=== PATIENT | male | born 1980 | race African-American/Black ===

== ENCOUNTER 2016-04-06 15:17 | Emergency (ER) | payer MEDICAID ==
[~2016-04-06] VITALS: Ht 190.5 cm; Wt 95.3 kg
[~2016-04-06 15:17] MED LIST: CATAFLAM50 MG PO; DAYPRO600 M1 PO; FLEXERIL10 MG PO; FLEXERIL5 MG PO; MOTRIN800 MG PO; NAPROXEN PO; NAPROXEN500 M1 PO; PENICILLIN250 MG; PREDNISONE20 MG PO; ROBAXIN750 MG PO; VICODIN 5/500 505 MG PO; VICODIN ES 7501 TAB PO; VISTARIL25 MG PO; VOLTAREN50 M1 PO; WELLBUTRIN100 MG PO; WYMOX500 MG PO; XANAX1 MG PO; XANAX2 M1 PO
[2016-04-06] MEDS ORDERED: ABILIFY2 MG PO (15:23)
[2016-04-06] MEDS ORDERED: NEURONTIN800 MG PO (15:23)
[2016-04-06] MEDS ORDERED: XANAX2 M1 PO (15:51)
== END 2016-04-06 15:57 | disposition home or self-care (01) ==
LOC: ED 15:17
DX: F41.9 Anxiety disorder, unspecified (principal); Z88.6 Allergy status to analgesic agent; Z79.899 Other long term (current) drug therapy; F17.200 Nicotine dependence, unspecified, uncomplicated

== ENCOUNTER 2016-07-01 06:45 | Emergency (ER) | payer MEDICAID ==
[~2016-07-01] VITALS: Ht 190.5 cm; Wt 97.5 kg
[~2016-07-01 06:45] MED LIST changes: +ABILIFY2 MG PO; +NEURONTIN800 MG PO
[2016-07-01] MEDS ORDERED: XANAX2 M1 PO ×2 (06:53→09:26)
== END 2016-07-01 09:45 | disposition home or self-care (01) ==
LOC: ED 06:45
DX: F41.9 Anxiety disorder, unspecified (principal); F17.200 Nicotine dependence, unspecified, uncomplicated; Z88.6 Allergy status to analgesic agent

== ENCOUNTER 2016-08-16 15:03 | Emergency (ER) | payer SELFPAY ==
[~2016-08-16] VITALS: Ht 193 cm; Wt 102.1 kg
[2016-08-16] MEDS ORDERED: NEURONTIN800 MG PO (15:26)
[2016-08-16] MEDS ORDERED: XANAX XR1 MG PO (15:26)
== END 2016-08-16 15:54 | disposition home or self-care (01) ==
LOC: ED 15:03
DX: F41.9 Anxiety disorder, unspecified (principal); F17.200 Nicotine dependence, unspecified, uncomplicated; Z90.49 Acquired absence of other specified parts of digestive tract; Z88.6 Allergy status to analgesic agent

== ENCOUNTER 2016-10-16 12:49 | Emergency (ER) | payer SELFPAY ==
[~2016-10-16] VITALS: Wt 95.3 kg
[~2016-10-16 12:49] MED LIST changes: +XANAX XR1 MG PO
[2016-10-16] MEDS ORDERED: AMOXICILLIN500 M2 PO (13:08)
[2016-10-16] MEDS ORDERED: ZYRTEC10 MG PO (13:08)
== END 2016-10-16 14:14 | disposition home or self-care (01) ==
LOC: ED 12:49
DX: J01.90 Acute sinusitis, unspecified (principal); F17.200 Nicotine dependence, unspecified, uncomplicated; Z90.49 Acquired absence of other specified parts of digestive tract; Z88.6 Allergy status to analgesic agent

== ENCOUNTER 2017-01-09 14:57 | Emergency (ER) | payer SELFPAY ==
[~2017-01-09] VITALS: Wt 95.3 kg
[~2017-01-09 14:57] MED LIST changes: +AMOXICILLIN500 M2 PO; +ZYRTEC10 MG PO
[2017-01-09] MEDS ORDERED: ALPRAZOLAM XR1 MG PO (15:21)
[2017-01-09] MEDS ORDERED: GABAPENTIN800 MG PO (15:21)
== END 2017-01-09 16:36 | disposition home or self-care (01) ==
LOC: ED 14:57
DX: F41.9 Anxiety disorder, unspecified (principal); R03.0 Elevated blood-pressure reading, without diagnosis of hypertension; F17.200 Nicotine dependence, unspecified, uncomplicated; Z88.6 Allergy status to analgesic agent; Z90.49 Acquired absence of other specified parts of digestive tract

== ENCOUNTER 2017-02-16 20:19 | Emergency (ER) | payer SELFPAY ==
[~2017-02-16] VITALS: Ht 185.4 cm; Wt 77.1 kg
[~2017-02-16 20:19] MED LIST changes: +ALPRAZOLAM XR1 MG PO; +GABAPENTIN800 MG PO
== END 2017-02-16 22:07 | disposition home or self-care (01) ==
LOC: ED 20:19
DX: T40.1X1A Poisoning by heroin, accidental (unintentional), initial encounter (principal); F17.200 Nicotine dependence, unspecified, uncomplicated; Z90.49 Acquired absence of other specified parts of digestive tract; Z88.6 Allergy status to analgesic agent; Z79.899 Other long term (current) drug therapy; Y92.9 Unspecified place or not applicable

== ENCOUNTER 2017-05-24 20:16 | Emergency (ER) | payer SELFPAY ==
[~2017-05-24] VITALS: Ht 190.5 cm; Wt 99.8 kg
[2017-05-24 21:06] LABS: BASO % 0.3 % (0.0-1.0); EOS # 0.1 10*3/uL (0.0-0.4); EOS % 1.4 % (1.0-4.0); HEMATOCRIT 33.8 % (42.0-52.0); HEMOGLOBIN 11.5 g/dl (14.0-18.0); LYMPH # 2.9 10*3/uL (1.3-4.4); LYMPH % 41.1 % (27.0-41.0); MEAN CELL VOLUME 88.5 fl (80.0-94.0); MEAN CORPUSCULAR HGB 30.1 pg (27.0-31.0); MEAN PLATELET VOLUME 10.9 fl (9.6-12.3); MONO # 0.6 10*3/uL (0.1-1.0); NEUT # 3.5 10*3/uL (2.3-7.9); NEUT % 49.1 % (47.0-73.0); PLATELET COUNT AUTOMATED 196 10*3/uL (130-400); RED BLOOD COUNT 3.82 10*6/uL (4.50-5.90); RED CELL DISTRI WIDTH 13.6 % (0-14.5)
[2017-05-24 21:19] LABS: BUN 12 mg/dl (7-24); CHLORIDE 103 mmol/L (98-107); CREATININE 1.11 mg/dL (0.70-1.30); POTASSIUM 3.2 mmol/L (3.5-5.1); SODIUM 140 mmol/L (136-145)
[2017-05-24 21:20] LABS: ACETAMINOPHEN (TYLENOL) < 2.0 ug/ml (10-30); ETHYL ALCOHOL < 3.0 mg/dl (<3)
[2017-05-24] MEDS ORDERED: XANAX XR1 MG PO ×3 (22:13→22:18)
[2017-05-24] MEDS ORDERED: NEURONTIN800 MG PO ×2 (22:13→22:16)
== END 2017-05-24 22:18 | disposition home or self-care (01) ==
LOC: ED 20:16
PROVIDERS: Emergency Medicine Emergency Medical Services
DX: F43.11 Post-traumatic stress disorder, acute (principal); F17.200 Nicotine dependence, unspecified, uncomplicated; F41.9 Anxiety disorder, unspecified; Z79.899 Other long term (current) drug therapy; Z90.49 Acquired absence of other specified parts of digestive tract; Z88.6 Allergy status to analgesic agent

== ENCOUNTER 2017-08-08 16:25 | Emergency (ER) | payer OTHER ==
[~2017-08-08] VITALS: Ht 190.5 cm; Wt 90.7 kg
== END 2017-08-08 18:09 | disposition home or self-care (01) ==
LOC: ED 16:25
DX: S06.0X1A Concussion with loss of consciousness of 30 minutes or less, initial encounter (principal); G89.29 Other chronic pain; Z90.49 Acquired absence of other specified parts of digestive tract; Z88.6 Allergy status to analgesic agent; Y04.0XXA Assault by unarmed brawl or fight, initial encounter; Y93.89 Activity, other specified; Y92.89 Other specified places as the place of occurrence of the external cause; Y99.9 Unspecified external cause status

== ENCOUNTER 2017-10-22 16:41 | Inpatient (IN) | payer OTHER ==
[~2017-10-22] VITALS: Ht 190.5 cm; Wt 85.9 kg
[2017-10-22 17:00] VITALS: BP 113/71
[2017-10-22] MEDS ORDERED: NEURONTIN800 MG PO (17:19)
[2017-10-22 20:00] VITALS: BP 128/78
[2017-10-23] VITALS: BP 123/69
[2017-10-23 08:00] VITALS: BP 111/68
== END 2017-10-23 08:54 | disposition left against medical advice (07) | DRG 894 ==
LOC: 4E 16:41
DX: F11.23 Opioid dependence with withdrawal (principal); F14.10 Cocaine abuse, uncomplicated; F41.9 Anxiety disorder, unspecified; G89.29 Other chronic pain; F43.10 Post-traumatic stress disorder, unspecified; F17.210 Nicotine dependence, cigarettes, uncomplicated; Z53.21 Procedure and treatment not carried out due to patient leaving prior to being seen by health care provider; Z90.49 Acquired absence of other specified parts of digestive tract; Z71.6 Tobacco abuse counseling; Z88.9 Allergy status to unspecified drugs, medicaments and biological substances

== ENCOUNTER 2018-04-21 13:16 | Emergency (ER) | payer OTHER ==
[~2018-04-21] VITALS: Ht 190.5 cm; Wt 90.7 kg
[2018-04-21] MEDS ORDERED: XANAX1 MG PO (14:33)
== END 2018-04-21 14:42 | disposition home or self-care (01) ==
LOC: ED 13:16
DX: F41.9 Anxiety disorder, unspecified (principal); Z76.0 Encounter for issue of repeat prescription; F17.200 Nicotine dependence, unspecified, uncomplicated; Z88.6 Allergy status to analgesic agent; Z79.899 Other long term (current) drug therapy; Z90.49 Acquired absence of other specified parts of digestive tract

== ENCOUNTER 2018-05-15 11:06 | Emergency (ER) | payer OTHER ==
[~2018-05-15] VITALS: Ht 193 cm; Wt 90.7 kg
[2018-05-15] MEDS ORDERED: XANAX1 MG PO (12:00)
[2018-08-12] MEDS ORDERED: METHOCARBAMOL750 M1 PO (11:36)
[2018-08-12] MEDS ORDERED: NEURONTIN800 MG PO (11:36)
[2018-08-12] MEDS ORDERED: ZOFRAN 4 MG ED2 TAB PO (11:36)
[2018-08-12] MEDS ORDERED: DICYCLOMINE HCL20 MG PO (11:36)
== END 2018-05-15 12:04 | disposition home or self-care (01) ==
LOC: ED 11:06
DX: F41.9 Anxiety disorder, unspecified (principal); F41.0 Panic disorder [episodic paroxysmal anxiety]; F43.10 Post-traumatic stress disorder, unspecified; F17.200 Nicotine dependence, unspecified, uncomplicated; Z88.6 Allergy status to analgesic agent

== ENCOUNTER 2018-05-30 10:48 | Emergency (ER) | payer OTHER ==
[~2018-05-30] VITALS: Ht 190.5 cm; Wt 95.3 kg
--- NOTE | ~2018-05-30 | EKG ---
[place], [place] ELECTROCARDIOGRAM REPORT NAME: ANETA JAMIL UNIT #: [id number] ROOM: DOCTOR: DANDRE DRAFT REPORT BIRTHDATE: [birth year] [facility] Test Date: 2018-05-30 Test Time: 11:07:56 Pat Name: ANETA JAMIL Department: Room: Gender: School Counselor: : 1980 Requested By: JOSIAH LOCKETT Order Number: [id number] Reading MD: Crys Shah MD Measurements Intervals [place] Rate: 83 P: 45 W[place]: 170 QRS: 48 QRSD: 83 T: 33 QT: 365 QTc: 429 Interpretive Statements Sinus rhythm Consider left ventricular hypertrophy ST elev, probable normal early repol pattern Baseline wander in lead(s) V2 No previous ECG available for comparison Electronically Signed On 06-02-2018 15:23:12 PST by Crys Shah MD CM:EKGRPT:ELECTROCARDIOGRAM REPORT [id number] JOSIAH DAWKINS DRAFT REPORT JOSIAH LOCKETT DO
[2018-05-30 11:10] LABS: BASO % 0.4 % (0.0-1.0); EOS % 0.8 % (1.0-4.0); HEMOGLOBIN 12.7 g/dl (14.0-18.0); LYMPH # 1.9 10*3/uL (1.3-4.4); LYMPH % 37.4 % (27.0-41.0); MEAN CELL VOLUME 92.2 fl (80.0-94.0); MEAN CORPUSCULAR HGB 30.8 pg (27.0-31.0); MEAN CORPUSCULAR HGB CONC 33.4 g/dl (33.0-37.0); MEAN PLATELET VOLUME 10.6 fl (9.6-12.3); MONO # 0.7 10*3/uL (0.1-1.0); MONO % 12.8 % (3.0-9.0); NEUT # 2.5 10*3/uL (2.3-7.9); NEUT % 48.6 % (47.0-73.0); PLATELET COUNT AUTOMATED 219 10*3/uL (130-400); RED BLOOD COUNT 4.12 10*6/uL (4.50-5.90); RED CELL DISTRI WIDTH 13.9 % (0-14.5); WHITE BLOOD COUNT 5.2 10*3/uL (4.8-10.8)
[2018-05-30 11:21] LABS: ACT PARTIAL THROMBO TIME 27.9 SECONDS (20.8-31.5)
[2018-05-30 11:47] LABS: ALBUMIN 3.7 gm/dl (3.1-4.5); ALKALINE PHOSPHATASE 72 U/L (45-117); BUN 12 mg/dl (7-24); CHLORIDE 106 mmol/L (98-107); CREATININE 0.93 mg/dL (0.70-1.30); ETHYL ALCOHOL < 3.0 mg/dl (<3); LIPASE 49 U/L (73-393); POTASSIUM 3.3 mmol/L (3.5-5.1); SGOT/AST 53 IU/L (3-35); SGPT/ALT 107 U/L (12-78); SODIUM 137 mmol/L (136-145); TOTAL PROTEIN 8.5 gm/dL (6.4-8.2); TROPONIN I < 0.015 ng/ml (<0.045)
[2018-05-30 13:26] LABS: ACETAMINOPHEN (TYLENOL) < 5.0 ug/ml (10-30)
[2018-08-12] MEDS ORDERED: NEURONTIN800 MG PO (11:36)
[2018-08-12] MEDS ORDERED: METHOCARBAMOL750 M1 PO (11:36)
[2018-08-12] MEDS ORDERED: DICYCLOMINE HCL20 MG PO (11:36)
[2018-08-12] MEDS ORDERED: ZOFRAN 4 MG ED2 TAB PO (11:36)
== END 2018-05-30 15:19 | disposition left against medical advice (07) ==
LOC: ED 10:48
PROVIDERS: Emergency Medicine
DX: F19.10 Other psychoactive substance abuse, uncomplicated (principal); F14.10 Cocaine abuse, uncomplicated; F11.10 Opioid abuse, uncomplicated; F17.200 Nicotine dependence, unspecified, uncomplicated; G89.29 Other chronic pain; Z88.6 Allergy status to analgesic agent; Z79.899 Other long term (current) drug therapy

== ENCOUNTER 2018-09-04 18:45 | Emergency (ER) | payer OTHER ==
[~2018-09-04] VITALS: Ht 190.5 cm; Wt 83.9 kg
[~2018-09-04 18:45] MED LIST changes: +DICYCLOMINE HCL20 MG PO; +METHOCARBAMOL750 M1 PO; +ZOFRAN 4 MG ED2 TAB PO
== END 2018-09-04 23:46 | disposition left against medical advice (07) ==
LOC: ED 18:45
DX: J34.89 Other specified disorders of nose and nasal sinuses (principal); R09.89 Other specified symptoms and signs involving the circulatory and respiratory systems; R51 Headache; R60.0 Localized edema; F17.200 Nicotine dependence, unspecified, uncomplicated; Z88.6 Allergy status to analgesic agent; Z79.899 Other long term (current) drug therapy; Z90.49 Acquired absence of other specified parts of digestive tract

== ENCOUNTER 2018-09-18 13:35 | Emergency (ER) | payer OTHER ==
[~2018-09-18] VITALS: Ht 190.5 cm; Wt 86.2 kg
[2018-09-18 13:58] LABS: BILIRUBIN NEGATIVE (NEGATIVE); BLOOD 3+ (NEGATIVE); CLARITY CLOUDY (CLEAR); COLOR YELLOW (YELLOW); GLUCOSE NEGATIVE (NEGATIVE); KETONE NEGATIVE (NEGATIVE); LEUKO ESTERASE 3+ (NEGATIVE); NITRITE POSITIVE (NEGATIVE); PH 6.5 (5.0-9.0)
[2018-09-18 14:10] LABS: BACTERIA 2+; RBC TNTC rbc/hpf (0-2); WBC TNTC wbc/hpf (0-5)
[2018-09-22 03:04] LABS: GONOCOCCUS BY NAA Negative (Negative)
== END 2018-09-18 15:50 | disposition home or self-care (01) ==
LOC: ED 13:35
PROVIDERS: Nurse Practitioner Family
DX: N39.0 Urinary tract infection, site not specified (principal); Z20.2 Contact with and (suspected) exposure to infections with a predominantly sexual mode of transmission; F17.200 Nicotine dependence, unspecified, uncomplicated; Z88.6 Allergy status to analgesic agent; Z79.899 Other long term (current) drug therapy; Z90.49 Acquired absence of other specified parts of digestive tract

== ENCOUNTER 2019-02-16 05:16 | Inpatient (IN) | payer SELFPAY ==
[2019-02-16] VITALS (7 sets, daily range): BP systolic 120–142; BP diastolic 60–91
[~2019-02-16] VITALS: Ht 190.5 cm; Wt 91.6 kg
--- NOTE | ~2019-02-16 | EKG ---
[place], [place] ELECTROCARDIOGRAM REPORT NAME: ANETA JAMIL UNIT #: [id number] ROOM: [facility] DOCTOR: DANDRE DRAFT REPORT BIRTHDATE: [birth year] [facility] Test Date: 2019-02-16 Test Time: 05:49:43 Pat Name: ANETA JAMIL Department: Room: [facility] Gender: M Financial Officer: : 1980 Requested By: SAMEER COSTA Order Number: [id number] Reading MD: Crys Shah MD Measurements Intervals [place] Rate: 87 P: 42 [place]: 172 QRS: 53 QRSD: 78 T: 12 QT: 363 QTc: 437 Interpretive Statements Sinus rhythm ST elev, probable normal early repol pattern Baseline wander in lead(s) I,II,aVR,V1,V6 Compared to ECG 08/08/2018 20:34:46 ST (T wave) deviation now present Electronically Signed On 02-17-2019 8:54:29 PST by Crys Shah MD CM:EKGRPT:ELECTROCARDIOGRAM REPORT [id number] SAMEER DAWKINS DRAFT REPORT SAMEER COSTA DO
--- NOTE | 2019-02-16 05:45 | NUR ---
TOTAL OF NARCAN 4 MG IV GIVEN WITH NO CHANGE IN PT LOC. HE IS LETHARGIC BUT DOES AROUSE OCCASSIONALLY AND WILL BE ALERT/ORIENTED X3. HE GETS AGITATED EASILY WHEN AWAKENED. STILL NO URINE PROVIDED AT THIS TIME. URINAL IN PT HAND.REPORT TO ABIDA PEREZ.--JODIE MONZON RN
[2019-02-16 05:58] LABS: BASO % 0.4 % (0.0-1.0); EOS # 0.1 10*3/uL (0.0-0.4); EOS % 1.4 % (1.0-4.0); HEMATOCRIT 37.1 % (42.0-52.0); HEMOGLOBIN 12.4 g/dl (14.0-18.0); LYMPH # 2.3 10*3/uL (1.3-4.4); MEAN CELL VOLUME 91.6 fl (80.0-94.0); MEAN CORPUSCULAR HGB 30.6 pg (27.0-31.0); MEAN CORPUSCULAR HGB CONC 33.4 g/dl (33.0-37.0); MEAN PLATELET VOLUME 11.5 fl (9.6-12.3); MONO # 0.5 10*3/uL (0.1-1.0); MONO % 9.1 % (3.0-9.0); NEUT # 2.3 10*3/uL (2.3-7.9); NEUT % 43.9 % (47.0-73.0); PLATELET COUNT AUTOMATED 197 10*3/uL (130-400); RED BLOOD COUNT 4.05 10*6/uL (4.50-5.90); RED CELL DISTRI WIDTH 13.9 % (0-14.5); WHITE BLOOD COUNT 5.2 10*3/uL (4.8-10.8)
--- NOTE | 2019-02-16 06:00 | NUR ---
ACCOMPANIED PT TO CT SCAN--JODIE MONZON RN
[2019-02-16 06:05] LABS: ALBUMIN 3.9 gm/dl (3.1-4.5); ALKALINE PHOSPHATASE 54 U/L (45-117); BUN 12 mg/dl (7-24); CHLORIDE 104 mmol/L (98-107); CREATININE 1.02 mg/dL (0.70-1.30); POTASSIUM 3.7 mmol/L (3.5-5.1); SGOT/AST 50 IU/L (3-35); SGPT/ALT 85 U/L (12-78); SODIUM 139 mmol/L (136-145); TOTAL PROTEIN 7.7 gm/dL (6.4-8.2)
[2019-02-16 06:09] LABS: ETHYL ALCOHOL < 3.0 mg/dl (<3)
--- NOTE | 2019-02-16 06:20 | NUR ---
ATTEMPTED 3X TO GET PT TO USE URINAL.HE GETS VERY AGITATED WHEN ASKED.WILL WAIT TO SEE IF IV FLUIDS HELP PROMOTE URINATION.DR COSTA AWARE.---JODIE MONZON RN
--- NOTE | 2019-02-16 07:10 | NUR ---
NURSE REPORT ACCEPTED. PT RESTING WITH EYES CLOSED.
--- NOTE | 2019-02-16 07:11 | NUR ---
DR COSTA'S DIRECTION REGARDING URINE SPECIMENS IS "WHEN HE URINATES, SEND THE SPECIMEN". SALINE INFUSING. PT HAS URINAL.
--- NOTE | 2019-02-16 07:39 | NUR ---
PT REFUSES MEAL TRAY. UNWILLING TO PROVIDE URINE SPECIMEN YET. VITALS STABLE AND WITHIN NORMAL LIMITS.
--- NOTE | 2019-02-16 09:21 | NUR ---
PT IS EASILY AROUSED AND DOES ANSWER MANY QUESTIONS APPROPRIATELY BUT IS LETHARGIC AND NOT FULLY ORIENTED YET. PT CONTINUES TO DENY DESIRE FOR MEAL TRAY OR THE NEED TO URINATE AND FALLS QUICKLY BACK ASLEEP. VITALS REMAIN STABLE..
--- NOTE | 2019-02-16 10:50 | NUR ---
PT AWAKENED, APPEARS ORIENTED BUT REMAINS VERY SLEEPY. HE CLAIMS HE HAD A CELLPHONE WHICH IS NOT ON HIS PERSON OR IN HIS ROOM AND THERE IS NO DOCUMENTATION FROM N[facility]-SHIFT TO ITS LOCATION. HE DOES QUICKLY FALL BACK ASLEEP. HE REFUSES TO BE ADMITTED TO THE HOSPITAL.
[2019-02-16 11:03] LABS: BILIRUBIN NEGATIVE (NEGATIVE); BLOOD NEGATIVE (NEGATIVE); CLARITY CLEAR (CLEAR); COLOR YELLOW (YELLOW); GLUCOSE NEGATIVE (NEGATIVE); KETONE NEGATIVE (NEGATIVE); LEUKO ESTERASE NEGATIVE (NEGATIVE); NITRITE NEGATIVE (NEGATIVE); PH 5.5 (5.0-9.0); UROBILINOGEN 0.2 E.U./dl (0.2-1.0)
[2019-02-16 11:12] LABS: URINE AMPHETAMINES < 1000 (1000ng/ml); URINE BARBITURATES < 200 (200ng/ml); URINE BENZODIAZEPINES < 200 (200ng/ml); URINE CANNABINOIDS (THC) < 50 (50ng/ml); URINE COCAINE > 300 (300ng/ml); URINE METHADONE < 300 (300ng/ml); URINE OPIATES < 300 (300ng/ml)
[2019-02-16 11:13] LABS: RBC 0-2 rbc/hpf (0-2); URINE PHENCYCLIDINE < 25 (25ng/ml); WBC 0-2 wbc/hpf (0-5)
--- NOTE | 2019-02-16 11:27 | NUR ---
PT NOW AWAKENED AGAIN TO INQUIRE IF HE WILL AGREE TO STAY. HE WILL. THEN FELL IMMEDIATELY BACK TO SLEEP.
--- NOTE | 2019-02-16 11:42 | NUR ---
A 38, admitted to ICCU, under the services of MIO Dejesus DO with a diagnosis of ALTERED MENTAL STATUS. Chief complaint is LETHARGY, UNRESPONSIVENESS. Patient arrived via OTHER from ER. Monitor applied. Initial assessment completed. Vital signs taken and recorded. MIO DEJESUS DO notified of admission to the unit. Orders received. See assessment for past medical history, medications and allergies. Patient and/or family oriented to unit. [facility] visitation policy reviewed. Clothing/patient valuable form completed. ALEJANDRINA AGUERO
--- NOTE | 2019-02-16 11:52 | NUR ---
SPOKE WITH PHARMACIST FROM [email or web address]. VERIFIED THAT PATIENT HASN'T HAD ANY PRESCRIPTIONS FILLED SINCE SEPTEMBER 2018.
--- NOTE | 2019-02-16 17:14 | NUR ---
AWAKE, ASKING FOR FOOD
--- NOTE | 2019-02-16 20:29 | NUR ---
PT. RESTING IN BED. IVF CONTINUE ORDERED VIA RAN, SITE ASYMPT LUNGS DIMINISHED BUT CLEAR BILAT, PULSE OX 98% ON RA. ABDOMEN SOFT, NONDSITENDED AND NORMO. NO PERIPHERAL EDEMA NOTED. RESP. EASY AND REG ,NO DISTRESS. MICHELLE SMART RN
[2019-02-17] VITALS: BP 111/70
[2019-02-17 04:00] VITALS: BP 118/68
--- NOTE | 2019-02-17 05:23 | NUR ---
PT. REFUSED AM BLOODWORK. MICHLELE SMART RN
--- NOTE | 2019-02-17 07:28 | NUR ---
Shift chart check completed.24 HR chart check completed.
--- NOTE | 2019-02-17 07:56 | NUR ---
PT STOOD TO VOID, WAS STEADY, THEN LYING BACK IN BED, APPEARED COMFORTABLE. ON ASSESSMENT HE AROUSES EASILY. ABLE TO SAY HE'S IN HOSPITAL, THEN [place], BUT HE'S UNSURE WHY HE'S HERE AND ASKED WHAT DAY IT WAS. I INFORMED HIM OF EVENTS OF YESTERDAY. HE DENIES USING ANY HEROIN ("NOT ANYMORE"). INFORMED HIM HIS URINE WAS POSITIVE FOR COCAINE ONLY AND ETOH <3.0. HE DIDN'T VOICE TO ME ANYTHING ABOUT WHAT HE TOOK. I TOLD HIM THAT EARLIER TODAY HE HAD REFUSED LABS AND AT THIS TIME HE AGAIN SAYS "I DON'T WANT MORE LABS". BREAKFAST ORDERED. HE'S COOPERATIVE. IV FLUIDS CONTINUE.
[2019-02-17 08:00] VITALS: BP 120/70
--- NOTE | 2019-02-17 08:25 | NUR ---
DR KRUSE INFORMED THAT PT AGAIN REFUSING LABS. CANCELLING THEM "REFUSED".
--- NOTE | 2019-02-17 09:14 | NUR ---
DR VANN HAS VISITED.DISCHARGE ORDER RECEIVED. HE PHONED SOMEONE. IV AND MONITOR REMOVED. DISCHARGE INSTRUCTIONS REVIEWED WITH PT. HE LEFT, AMBULATORY WITH ALL OF HIS POSSESSIONS, IN STABLE CONDITION.
== END 2019-02-17 09:14 | disposition home or self-care (01) | DRG 917 ==
LOC: ED 05:16 → ICCU 10:36 → EDHOLD 10:36 → ICCU 10:39
PROVIDERS: Emergency Medicine; ADMIT Family Medicine
DX: T40.5X1A Poisoning by cocaine, accidental (unintentional), initial encounter (principal); G93.41 Metabolic encephalopathy; D64.9 Anemia, unspecified; F14.10 Cocaine abuse, uncomplicated; R74.0 Nonspecific elevation of levels of transaminase and lactic acid dehydrogenase [LDH]; R73.9 Hyperglycemia, unspecified; F41.9 Anxiety disorder, unspecified; F17.210 Nicotine dependence, cigarettes, uncomplicated; F43.10 Post-traumatic stress disorder, unspecified; G89.29 Other chronic pain; Z88.5 Allergy status to narcotic agent; Z71.6 Tobacco abuse counseling; Z88.8 Allergy status to other drugs, medicaments and biological substances; Z90.49 Acquired absence of other specified parts of digestive tract; Y92.89 Other specified places as the place of occurrence of the external cause

== ENCOUNTER 2019-04-16 15:19 | Emergency (ER) | payer OTHER ==
[~2019-04-16] VITALS: Ht 190.5 cm; Wt 94.3 kg
[2019-04-16 16:37] LABS: BILIRUBIN NEGATIVE (NEGATIVE); BLOOD NEGATIVE (NEGATIVE); CLARITY CLEAR (CLEAR); COLOR YELLOW (YELLOW); GLUCOSE NEGATIVE (NEGATIVE); KETONE NEGATIVE (NEGATIVE); LEUKO ESTERASE NEGATIVE (NEGATIVE); NITRITE NEGATIVE (NEGATIVE); PH 6.5 (5.0-9.0); SPECIFIC GRAVITY 1.025 (1.005-1.030); UROBILINOGEN 0.2 E.U./dl (0.2-1.0)
[2019-04-16 17:01] LABS: WBC 0-2 wbc/hpf (0-5)
[2019-04-17 18:07] LABS: GONOCOCCUS BY NAA Negative (Negative)
== END 2019-04-16 16:52 | disposition home or self-care (01) ==
LOC: ED 15:19
PROVIDERS: Nurse Practitioner Family
DX: R30.0 Dysuria (principal); N48.89 Other specified disorders of penis; Z20.2 Contact with and (suspected) exposure to infections with a predominantly sexual mode of transmission; Z88.6 Allergy status to analgesic agent; Z88.8 Allergy status to other drugs, medicaments and biological substances; Z90.49 Acquired absence of other specified parts of digestive tract

== ENCOUNTER 2019-11-01 21:58 | Emergency (ER) | payer OTHER ==
[2019-11-01] MEDS ORDERED: BUSPIRONE HCL10 MG PO (22:01)
[2019-11-01] MEDS ORDERED: SUBOXONE 8 MG-1 EACH SL (22:01)
== END 2019-11-01 23:12 | disposition home or self-care (01) ==
LOC: ED 21:58
DX: T50.905A Adverse effect of unspecified drugs, medicaments and biological substances, initial encounter (principal); F43.10 Post-traumatic stress disorder, unspecified; F41.9 Anxiety disorder, unspecified; X58.XXXA Exposure to other specified factors, initial encounter; Y93.89 Activity, other specified; Y92.89 Other specified places as the place of occurrence of the external cause; Y99.8 Other external cause status

== ENCOUNTER 2019-11-26 21:53 | Emergency (ER) | payer OTHER ==
[~2019-11-26] VITALS: Ht 190.5 cm; Wt 108.1 kg
[~2019-11-26 21:53] MED LIST changes: +BUSPIRONE HCL10 MG PO; +SUBOXONE 8 MG-1 EACH SL
[2019-11-26 23:00] LABS: BASO % 0.3 % (0.0-1.0); EOS % 0.3 % (1.0-4.0); HEMATOCRIT 32.8 % (42.0-52.0); LYMPH # 1.8 10*3/uL (1.3-4.4); LYMPH % 25.2 % (27.0-41.0); MEAN CELL VOLUME 88.4 fl (80.0-94.0); MEAN CORPUSCULAR HGB 28.8 pg (27.0-31.0); MEAN CORPUSCULAR HGB CONC 32.6 g/dl (33.0-37.0); MEAN PLATELET VOLUME 11.2 fl (9.6-12.3); MONO # 0.7 10*3/uL (0.1-1.0); MONO % 9.9 % (3.0-9.0); NEUT # 4.6 10*3/uL (2.3-7.9); PLATELET COUNT AUTOMATED 286 10*3/uL (130-400); RED BLOOD COUNT 3.71 10*6/uL (4.50-5.90); RED CELL DISTRI WIDTH 13.6 % (0-14.5); WHITE BLOOD COUNT 7.2 10*3/uL (4.8-10.8)
[2019-11-26 23:18] LABS: ALBUMIN 3.7 gm/dl (3.1-4.5); BUN 13 mg/dl (7-24); CHLORIDE 105 mmol/L (98-107); CREATININE 1.33 mg/dL (0.70-1.30); POTASSIUM 3.4 mmol/L (3.5-5.1); SGOT/AST 28 IU/L (3-35); SGPT/ALT 52 U/L (12-78); SODIUM 139 mmol/L (136-145)
[2019-11-26 23:37] LABS: ALKALINE PHOSPHATASE 87 U/L (45-117); TROPONIN I < 0.015 ng/ml (<0.045)
[2019-11-27 01:31] LABS: URINE AMPHETAMINES < 1000 (1000ng/ml); URINE BARBITURATES < 200 (200ng/ml); URINE BENZODIAZEPINES < 200 (200ng/ml); URINE CANNABINOIDS (THC) < 50 (50ng/ml); URINE COCAINE < 300 (300ng/ml); URINE METHADONE < 300 (300ng/ml); URINE OPIATES > 300 (300ng/ml)
[2019-11-27 01:32] LABS: URINE PHENCYCLIDINE < 25 (25ng/ml)
[2019-11-27 01:34] LABS: BILIRUBIN NEGATIVE; BLOOD NEGATIVE (NEGATIVE); CLARITY CLEAR (CLEAR); COLOR YELLOW (YELLOW); GLUCOSE NEGATIVE; KETONE TRACE; LEUKO ESTERASE TRACE (NEGATIVE); NITRITE NEGATIVE (NEGATIVE); PH 5.5 (4.5-8.0)
[2019-11-27 01:37] LABS: RBC 16-20 rbc/hpf (0-2)
== END 2019-11-27 01:52 | disposition home or self-care (01) ==
LOC: ED 21:53
PROVIDERS: Student in an Organized Health Care Education/Training Program
DX: J40 Bronchitis, not specified as acute or chronic (principal); F17.210 Nicotine dependence, cigarettes, uncomplicated; Z88.6 Allergy status to analgesic agent

== ENCOUNTER 2022-06-14 03:17 | Emergency (ER) | payer OTHER ==
[~2022-06-14] VITALS: Ht 190.5 cm; Wt 116.2 kg
[2022-06-14 03:47] LABS: BASO % 0.4 % (0.0-1.0); EOS # 0.1 10*3/uL (0.0-0.4); LYMPH # 2.4 10*3/uL (1.3-4.4); LYMPH % 42.2 % (27.0-41.0); MEAN CELL VOLUME 87.1 fl (80.0-94.0); MEAN PLATELET VOLUME 10.5 fl (9.6-12.3); MONO # 0.7 10*3/uL (0.1-1.0); MONO % 11.7 % (3.0-9.0); NEUT # 2.4 10*3/uL (2.3-7.9); NEUT % 43.2 % (47.0-73.0); PLATELET COUNT AUTOMATED 257 10*3/uL (130-400); RED BLOOD COUNT 3.56 10*6/uL (4.50-5.90); RED CELL DISTRI WIDTH 14.9 % (0-14.5); WHITE BLOOD COUNT 5.6 10*3/uL (4.8-10.8)
[2022-06-14 04:00] LABS: BUN 7 mg/dl (9-23); CHLORIDE 106 mmol/L (98-107); POTASSIUM 3.7 mmol/L (3.4-5.1)
== END 2022-06-14 05:08 | disposition short-term general hospital (02) ==
LOC: ED 03:17
PROVIDERS: Internal Medicine
DX: S62.393B Other fracture of third metacarpal bone, left hand, initial encounter for open fracture (principal); S62.395B Other fracture of fourth metacarpal bone, left hand, initial encounter for open fracture; D64.9 Anemia, unspecified; Z88.6 Allergy status to analgesic agent; Z88.8 Allergy status to other drugs, medicaments and biological substances; Z90.49 Acquired absence of other specified parts of digestive tract; F17.200 Nicotine dependence, unspecified, uncomplicated; F14.90 Cocaine use, unspecified, uncomplicated; F12.90 Cannabis use, unspecified, uncomplicated; F41.9 Anxiety disorder, unspecified; W26.8XXA Contact with other sharp object(s), not elsewhere classified, initial encounter; Y93.89 Activity, other specified; Y92.009 Unspecified place in unspecified non-institutional (private) residence as the place of occurrence of the external cause; Y99.8 Other external cause status

== ENCOUNTER 2022-06-21 16:41 | Emergency (ER) | payer SELFPAY ==
[~2022-06-21] VITALS: Wt 113.4 kg
== END 2022-06-21 18:38 | disposition left against medical advice (07) ==
LOC: ED 16:41
DX: M79.89 Other specified soft tissue disorders (principal); Z53.21 Procedure and treatment not carried out due to patient leaving prior to being seen by health care provider

== ENCOUNTER 2022-06-23 06:19 | Inpatient (IN) | payer OTHER ==
[~2022-06-23] VITALS: Ht 190.5 cm; Wt 111.8 kg
[2022-06-23 06:20] VITALS: BP 139/94
[2022-06-23 07:40] LABS: BASO % 0.2 % (0.0-1.0); EOS # 0.1 10*3/uL (0.0-0.4); EOS % 1.1 % (1.0-4.0); LYMPH # 1.6 10*3/uL (1.3-4.4); LYMPH % 30.4 % (27.0-41.0); MEAN CELL VOLUME 87.2 fl (80.0-94.0); MEAN CORPUSCULAR HGB 27.7 pg (27.0-31.0); MEAN CORPUSCULAR HGB CONC 31.8 g/dl (33.0-37.0); MEAN PLATELET VOLUME 10.8 fl (9.6-12.3); MONO # 0.5 10*3/uL (0.1-1.0); MONO % 9.3 % (3.0-9.0); NEUT # 3.2 10*3/uL (2.3-7.9); NEUT % 58.6 % (47.0-73.0); PLATELET COUNT AUTOMATED 257 10*3/uL (130-400); RED BLOOD COUNT 3.21 10*6/uL (4.50-5.90); RED CELL DISTRI WIDTH 15.8 % (0-14.5); WHITE BLOOD COUNT 5.4 10*3/uL (4.8-10.8)
[2022-06-23 08:00] LABS: ALKALINE PHOSPHATASE 70 U/L (46-116); BUN 16 mg/dl (9-23); CHLORIDE 104 mmol/L (98-107); POTASSIUM 3.8 mmol/L (3.4-5.1); SGPT/ALT 26 U/L (10-49); TOTAL PROTEIN 7.2 gm/dL (6.0-8.0)
[2022-06-23 09:15] LABS: BILIRUBIN Negative (Negative); BLOOD Negative (Negative); CLARITY Clear (Clear); COLOR Yellow (Yellow); GLUCOSE Negative (Negative); KETONE Negative (Negative); LEUKO ESTERASE Trace (Negative); NITRITE Negative (Negative); UROBILINOGEN 0.2 E.U./dl (0.0-1.0)
[2022-06-23 09:23] LABS: URINE AMPHETAMINES Positive (1000ng/ml); URINE BARBITURATES Negative (200ng/ml); URINE BENZODIAZEPINES Positive (200ng/ml); URINE CANNABINOIDS (THC) Positive (50ng/ml); URINE COCAINE Positive (300ng/ml); URINE METHADONE Negative (300ng/ml); URINE OPIATES Positive (300ng/ml); URINE PHENCYCLIDINE Negative (25ng/ml)
[2022-06-23 09:41] LABS: MUCOUS 1+
[2022-06-23 09:42] LABS: BACTERIA 1+; RBC 0-2 rbc/hpf (0-2)
[2022-06-23 12:14] VITALS: BP 133/83
[2022-06-23 17:17] VITALS: BP 126/76
[2022-06-23 20:30] VITALS: BP 132/74
[2022-06-24] VITALS: BP 132/60
[2022-06-24 08:00] VITALS: BP 155/91
[2022-06-24 09:33] LABS: BASO % 0.2 % (0.0-1.0); EOS # 0.1 10*3/uL (0.0-0.4); EOS % 1.4 % (1.0-4.0); HEMATOCRIT 30.2 % (42.0-52.0); LYMPH # 1.4 10*3/uL (1.3-4.4); LYMPH % 32.9 % (27.0-41.0); MEAN CELL VOLUME 86.5 fl (80.0-94.0); MEAN CORPUSCULAR HGB 27.2 pg (27.0-31.0); MEAN CORPUSCULAR HGB CONC 31.5 g/dl (33.0-37.0); MEAN PLATELET VOLUME 10.3 fl (9.6-12.3); MONO # 0.3 10*3/uL (0.1-1.0); MONO % 7.7 % (3.0-9.0); NEUT # 2.4 10*3/uL (2.3-7.9); NEUT % 57.6 % (47.0-73.0); PLATELET COUNT AUTOMATED 285 10*3/uL (130-400); RED BLOOD COUNT 3.49 10*6/uL (4.50-5.90); RED CELL DISTRI WIDTH 15.9 % (0-14.5); WHITE BLOOD COUNT 4.2 10*3/uL (4.8-10.8)
[2022-06-24 11:35] LABS: VITAMIN D, 25-HYDROXY 25.8 ng/mL (30-100)
[2022-06-24 12:00] VITALS: BP 134/61
[2022-06-24 13:47] LABS: BUN 8 mg/dl (9-23); CHLORIDE 111 mmol/L (98-107); CHOLESTEROL 135 mg/dL (<200); FREE T4 1.28 ng/dl (0.89-1.76); LDL CHOLESTEROL 73 mg/dL (9-159); THYROID STIM HORMONE (HS) 0.075 uIU/ml (0.550-4.780); TRIGLYCERIDES 94 mg/dl (<150)
[2022-06-24 16:00] VITALS: BP 143/58
[2022-06-24 20:00] VITALS: BP 137/72
[2022-06-25] VITALS: BP 142/82
[2022-06-25 08:00] VITALS: BP 166/65
[2022-06-25 12:00] VITALS: BP 197/71
[2022-06-25 14:45] VITALS: BP 188/90
[2022-06-25 16:25] LABS: HEMATOCRIT 31.6 % (42.0-52.0); MEAN CORPUSCULAR HGB 27.9 pg (27.0-31.0); MEAN CORPUSCULAR HGB CONC 33.9 g/dl (33.0-37.0); MEAN PLATELET VOLUME 10.3 fl (9.6-12.3); NUCLEATED RED BLOOD CELL 0.1 10*3/uL (0.0-0.0); NUCLEATED RED BLOOD CELL 1.1 % (0.0-0.0); RED BLOOD COUNT 3.84 10*6/uL (4.50-5.90); RED CELL DISTRI WIDTH 15.9 % (0-14.5)
[2022-06-25 16:32] LABS: MANUAL DIFF REFLEX YES
[2022-06-25 16:33] LABS: MEAN CELL VOLUME 82.3 fl (80.0-94.0); PLATELET COUNT AUTOMATED 365 10*3/uL (130-400)
[2022-06-25 16:41] LABS: BUN 8 mg/dl (9-23); CHLORIDE 109 mmol/L (98-107); POTASSIUM 4.5 mmol/L (3.4-5.1)
[2022-06-25 17:30] LABS: PLATELET SUFFICIENCY NORMAL (NORMAL); POLYCHROMASIA SLIGHT; TOTAL CELLS COUNTED 100 #CELLS
[2022-06-25 17:31] LABS: BURR CELLS FEW
[2022-06-25 20:00] VITALS: BP 157/64
[2022-06-26] VITALS: BP 142/71
[2022-06-26 08:00] VITALS: BP 160/89
[2022-06-26 12:00] VITALS: BP 192/95
[2022-06-26 16:00] VITALS: BP 163/79
[2022-06-26 20:00] VITALS: BP 162/88; BP 162/93
[2022-06-27] VITALS: BP 168/72; BP 176/96
[2022-06-27 08:00] VITALS: BP 137/77
[2022-06-27 12:00] VITALS: BP 159/98
[2022-06-27 16:00] VITALS: BP 156/68
[2022-06-27 20:00] VITALS: BP 164/86; BP 176/84
[2022-06-28] VITALS: BP 172/95
[2022-06-28 00:40] VITALS: BP 148/88
[2022-06-28 07:57] VITALS: BP 167/95
[2022-06-28] MEDS ORDERED: VITAMIN B-1100 M1 PO (08:36)
[2022-06-28] MEDS ORDERED: THERA TABLET400 MCG PO (08:36)
[2022-06-28] MEDS ORDERED: VIBRAMYCIN100 MG PO (08:36)
[2022-06-28] MEDS ORDERED: NATURE'S BLEND F1 MG PO (08:36)
[2022-06-28] MEDS ORDERED: VITAMIN D350 MC2 PO (08:36)
== END 2022-06-28 08:55 | DRG 603 ==
LOC: ED 06:19 → EDHOLD 08:19 → 5E 08:19
PROVIDERS: Internal Medicine; Registered Nurse; ADMIT Emergency Medicine; ATTEND Emergency Medicine
DX: L03.114 Cellulitis of left upper limb (principal); F15.10 Other stimulant abuse, uncomplicated; D64.9 Anemia, unspecified; F19.90 Other psychoactive substance use, unspecified, uncomplicated; F17.210 Nicotine dependence, cigarettes, uncomplicated; F43.10 Post-traumatic stress disorder, unspecified; F12.90 Cannabis use, unspecified, uncomplicated; F14.90 Cocaine use, unspecified, uncomplicated; E55.9 Vitamin D deficiency, unspecified; S61.402A Unspecified open wound of left hand, initial encounter; X58.XXXA Exposure to other specified factors, initial encounter; Y93.89 Activity, other specified; Y92.89 Other specified places as the place of occurrence of the external cause; Y99.8 Other external cause status; Z88.8 Allergy status to other drugs, medicaments and biological substances; Z90.49 Acquired absence of other specified parts of digestive tract; Z79.899 Other long term (current) drug therapy

== ENCOUNTER 2022-09-23 20:43 | Emergency (ER) | payer OTHER ==
[~2022-09-23] VITALS: Ht 190.5 cm; Wt 90.7 kg
[~2022-09-23 20:43] MED LIST changes: +NATURE'S BLEND F1 MG PO; +THERA TABLET400 MCG PO; +VIBRAMYCIN100 MG PO; +VITAMIN B-1100 M1 PO; +VITAMIN D350 MC2 PO
== END 2022-09-23 20:50 | disposition left against medical advice (07) ==
LOC: ED 20:43
DX: T50.901A Poisoning by unspecified drugs, medicaments and biological substances, accidental (unintentional), initial encounter (principal); F41.9 Anxiety disorder, unspecified; Z88.6 Allergy status to analgesic agent; Z88.8 Allergy status to other drugs, medicaments and biological substances; Z90.49 Acquired absence of other specified parts of digestive tract; Z98.890 Other specified postprocedural states; F17.200 Nicotine dependence, unspecified, uncomplicated; F12.90 Cannabis use, unspecified, uncomplicated; F14.10 Cocaine abuse, uncomplicated; Y92.009 Unspecified place in unspecified non-institutional (private) residence as the place of occurrence of the external cause

== ENCOUNTER 2022-09-24 14:56 | Emergency (ER) | payer OTHER ==
[~2022-09-24] VITALS: Ht 185.4 cm; Wt 72.6 kg
[2022-09-24 15:43] LABS: BILIRUBIN Negative (Negative); BLOOD Negative (Negative); CLARITY Cloudy (Clear); COLOR Yellow (Yellow); GLUCOSE Negative (Negative); KETONE Negative (Negative); LEUKO ESTERASE Negative (Negative); NITRITE Negative (Negative); PH 5.5 (4.5-8.0); SPECIFIC GRAVITY 1.025 (1.001-1.030)
[2022-09-24 15:54] LABS: BACTERIA 1+; MUCOUS 1+
== END 2022-09-24 15:49 | disposition home or self-care (01) ==
LOC: ED 14:56
PROVIDERS: Emergency Medicine
DX: A64 Unspecified sexually transmitted disease (principal); F41.9 Anxiety disorder, unspecified; F41.0 Panic disorder [episodic paroxysmal anxiety]; Z88.6 Allergy status to analgesic agent; Z88.8 Allergy status to other drugs, medicaments and biological substances; Z90.49 Acquired absence of other specified parts of digestive tract; Z98.890 Other specified postprocedural states; F17.200 Nicotine dependence, unspecified, uncomplicated; F12.90 Cannabis use, unspecified, uncomplicated; F14.10 Cocaine abuse, uncomplicated

== ENCOUNTER 2023-04-30 16:18 | Emergency (ER) | payer OTHER | END 2023-04-30 16:47 | disposition left against medical advice (07) | LOC: ED 16:18 | DX: R51.9 Headache, unspecified (principal); F19.90 Other psychoactive substance use, unspecified, uncomplicated; F17.210 Nicotine dependence, cigarettes, uncomplicated; F14.90 Cocaine use, unspecified, uncomplicated; F12.90 Cannabis use, unspecified, uncomplicated; Z88.6 Allergy status to analgesic agent; Z88.8 Allergy status to other drugs, medicaments and biological substances; Z90.49 Acquired absence of other specified parts of digestive tract; Z98.890 Other specified postprocedural states ==